=== PATIENT | female | born 1980 | race African-American/Black ===

== ENCOUNTER 2017-07-13 12:02 | Emergency (ER) | payer OTHER, MEDICAID ==
[~2017-07-13] VITALS: Ht 160 cm; Wt 57.2 kg
[2017-07-13 12:42] LABS: Basophils # (auto) 0 uL; Basophils % (auto) 0.4 % (0.0-2.0); Eosinophils # (auto) 0 uL; Eosinophils % (auto) 0.2 % (0.0-7.0); Hematocrit 33.7 % (36.0-46.0); Hemoglobin 11.1 g/dL (12.2-16.2); Lymphocytes # (auto) 1.8 uL; Lymphocytes % (auto) 27.9 % (10.0-50.0); Mean Corpuscular Hemoglobin 27.4 pg (28.0-32.0); Mean Corpuscular Volume 82.9 fL (80.0-100.0); Mean Platelet Volume 7.8 fL (6.9-10.8); Monocytes # (auto) 0.4 uL; Monocytes % (auto) 6.3 % (0.0-12.0); Neutrophils # (auto) 4.1 uL; Neutrophils % (auto) 65.2 % (37.0-80.0); Platelet Count (auto) 300 10^3/uL (140-450); Red Cell Distribution Width 18.5 % (11.8-14.3); White Blood Cell 6.3 10^3/uL (4.4-10.8)
[2017-07-13 13:07] LABS: Albumin 3.6 g/dL (3.4-5.0); BUN/Creatinine Ratio 16.9; Bilirubin, Total 0.8 mg/dL (0.2-1.0); Calcium 8.5 mg/dL (8.5-10.1); Total Protein 7.3 g/dL (6.4-8.2)
[2017-07-13 13:12] LABS: Potassium 2.9 mmol/L (3.5-5.1)
[2017-07-13] MEDS ORDERED: POTASSIUM CHL 10% (20 MEQ/15ML) 15ml ORAL SOLN PO ONE (13:15)
[2017-07-13 16:51] VITALS: BP 143/83
== END 2017-07-13 17:02 | disposition home or self-care (01) ==
LOC: ER 12:02
DX: O09.521 Supervision of elderly multigravida, first trimester (principal); Z3A.10 10 weeks gestation of pregnancy; O20.9 Hemorrhage in early pregnancy, unspecified
CPT/HCPCS: 36415; 76801; 76817; 80053; 84702; 85025